=== PATIENT | female | born 1950 | race African-American/Black ===

== ENCOUNTER 2018-04-16 06:01 | Day surgery (SDC) | payer MEDICARE, MEDICAID ==
--- NOTE | 2018-04-13 15:09 | Pre-Procedure Note/Attestation ---
Pre-Procedure Note/Attestation Complete Prior to Procedure Planned Procedure: right Procedure Narrative: Cataract extraction With Intraocular Lens Implant Right Eye Indications for Procedure Pre-Operative Diagnosis: Nuclear Sclerotic Cataract Right Eye Attestation I attest that I discussed the nature of the procedure; its benefits; risks and complications; and alternatives (and the risks and benefits of such alternatives ), prior to the procedure, with the patient (or the patient's legal entry level marketing representative). I attest that, if there was a reasonable possibility of needing a blood transfusion, the patient (or the patient's legal entry level marketing representative) was given the [facility] standardized written summary, pursuant to the Bradley Katrina Blood Safety Act ([place] Health and Safety Code # 1645, as amended). I attest that I re-evaluated the patient just prior to the surgery and that there has been no change in the patient's H&P, except as documented below: Christian Trevino MD Apr 13, 2018 15:09
--- NOTE | 2018-04-13 15:16 | Opthalmology H&P ---
Ophthalmology H&P H&P Chief Complaint: decreased vision in right eye HPI Vision Affects Ability to: read, focus/use eyes together, manage personal affairs HPI Narrative Blurry Vison Exam Visual Acuity: OD COUNTING FINGERS OS 20/125 Tension: OD 15 OS 14 Eye Exam: normal OU: external exam, palpebral fissure-width, marginal reflex distance, levator function, corneas, anterior chambers; findings: lens - MATURE/ NS CATARACT RIGHT EYE, fundus exam - POOR VIEW RIGHT EYE Assessment/Plan Treatment Plan: cataract extraction w/ lens implant Goals of Treatment: improvement of vision, enhance quality of life Attestation Attestation The risks and benefits of the surgery as well as alternative procedures were explained to the patient in detail. Christian Trevino MD Apr 13, 2018 15:16
[2018-04-16] VITALS (9 sets, daily range): BP systolic 126–177; BP diastolic 63–97
[~2018-04-16] VITALS: Ht 154.9 cm; Wt 53.5 kg
[2018-04-16] MEDS ORDERED: Tetracaine 0.5% Opth 4ml Soln RIGHT EYE ONE (07:00)
[2018-04-16] MEDS ORDERED: Maxitrol Opth Oint 3.5gm ONE (07:00)
[2018-04-16] MEDS ORDERED: Pred Forte 1% Opth Susp 1ml ONE (07:00)
[2018-04-16] MEDS ORDERED: Pilocarpine 1% Opth 15ml Soln ONE (07:00)
[2018-04-16] MEDS ORDERED: Dexamethasone 4mg/ml vial ONE (07:00)
[2018-04-16] MEDS ORDERED: Akten 3.5% 1ml Btl RIGHT EYE ONE (07:00)
[2018-04-16] MEDS ORDERED: Proparacaine 0.5% Opth Soln 15ml RIGHT EYE ONE (07:00)
[2018-04-16] MEDS: Cyclopentolate 1% Opth Sol 2ml RIGHT EYE SCH ×3 (07:35→08:05)
[2018-04-16] MEDS: Phenylephrine 10% Opth Soln 5ml RIGHT EYE SCH ×3 (07:35→08:05)
[2018-04-16] MEDS ORDERED: BSS 500ml btl ONE (07:35)
[2018-04-16] MEDS ORDERED: Povidone-Iodine 5% opth solution ONE ×2 (07:35→09:20)
[2018-04-16] MEDS: Tropicamide 1% Opth 15ml Soln RIGHT EYE SCH ×3 (07:35→08:05)
[2018-04-16] MEDS ORDERED: EPINEPHrine 1mg/1ml Amp ONE (07:35)
[2018-04-16] MEDS ORDERED: BSS 15ml BTL ONE (07:35)
[2018-04-16] MEDS ORDERED: Sodium Hyaluronate 14 mg/ml 0.85ml ONE (07:35)
[2018-04-16] MEDS: Diclofenac Sod 0.1% Op Soln RIGHT EYE SCH ×3 (07:36→08:05)
[2018-04-16] MEDS: Tobramycin Op Soln 0.3% 5ml RIGHT EYE SCH ×3 (07:36→08:05)
[2018-04-16] MEDS ORDERED: LR 1000ml 1,000 ML IVLG SCH (07:58)
--- NOTE | 2018-04-16 07:58 | Anethesia Preoperative Eval ---
Anesthesia Pre-op PMH/ROS General Date of Evaluation: Apr 16, 2018 Time of Evaluation: 07:54 Anesthesiologist: Raphael ASA Score: ASA 2 Mallampati Score Class I : Soft palate, uvula, fauces, pillars visible Class II: Soft palate, uvula, fauces visible Class III: Soft palate, base of uvula visible Class IV: Only hard plate visible Mallampati Classification: Class II Surgeon: Belinda Diagnosis: R eye cataract Surgical Procedure: R eye cataract extraction Anesthesia History: none Family History: no anesthesia problems Allergies: Coded Allergies: No Known Allergies (Unverified , 04/13/18) Patient NPO?: Yes Past Medical History Cardiovascular: Reports: HTN; Denies: CAD, [place], valve dz, arrhythmia, other Pulmonary: Denies: asthma, COPD, GENESIS, other Gastrointestinal/Genitourinary: Reports: GERD; Denies: CRI, ESRD, other Neurologic/Psychiatric: Reports: depression/anxiety; Denies: dementia, CVA, TIA, other Endocrine: Reports: DM; Denies: hypothyroidism, steroids, other HEENT: Reports: cataract (L), cataract (R) Hematology/Immune: Reports: anemia - mild; Denies: DVT, bleeding disorder, other Musculoskeletal/Integumentary: Reports: DJD; Denies: OA, RA, DDD, edema, other PMH Narrative: as above PSxH Narrative: See chart Anesthesia Pre-op Phys. Exam Physician Exam Last Vital Signs Date Time Temp Pulse Resp B/P (MAP) Pulse Ox O2 Delivery O2 Flow Rate FiO2 04/16/18 07:29 98.0 92 16 177/97 100 Room Air Constitutional: NAD Neurologic: CN 2-12 intact Cardiovascular: RRR, no M/R/G Respiratory: CTA Gastrointestinal: S/NT/ND Airway Exam Mallampati Score: Class II MO: limited ROM: full Teeth: missing Dentures: no upper, no lower Anesthesia Pre-op A/P Labs see chart Studies Pre-op Studies: EKG - SR Risk Assessment & Plan Assessment: ASa 2 Plan: MAC Status Change Before Surgery: No Pre-Antibiotics Drug: none Suraj Lim MD Apr 16, 2018 07:58
[2018-04-16] MEDS ORDERED: fentaNYL 100 mcg/2 mL IV PRN (08:00)
[2018-04-16] MEDS ORDERED: DiphenhydrAMINE 50mg/ml Inj IVP PRN (08:00)
[2018-04-16] MEDS ORDERED: ACETAMINOPHEN-1 EAC1 ORAL (08:11)
[2018-04-16] MEDS ORDERED: SOMA350 MG PO (08:11)
[2018-04-16] MEDS ORDERED: NOVOLIN 70100 UNIT/1 SUBQ (08:11)
[2018-04-16] MEDS ORDERED: PHENYTOIN SODI100 MG ORAL (08:11)
[2018-04-16] MEDS ORDERED: BUSPIRONE HCL30 MG ORAL (08:11)
[2018-04-16] MEDS ORDERED: GABAPENTIN300 MG ORAL (08:11)
[2018-04-16] MEDS ORDERED: PROCHLORPERAZINE5 MG ORAL (08:11)
[2018-04-16] MEDS ORDERED: NS Irrig 1000ml ONE (08:30)
[2018-04-16] MEDS ORDERED: LR 1000ml ONE (08:30)
[2018-04-16] MEDS ORDERED: Midazolam 2mg/2ml Inj ONE (08:30)
[2018-04-16] MEDS ORDERED: fentaNYL 100 mcg/2 mL IV ONE (08:30)
[2018-04-16] MEDS ORDERED: Sterile Water Irrig 1000ml IRRIG ONE (08:30)
[2018-04-16] MEDS ORDERED: Propofol 200mg/20ml IV ONE (08:30)
--- NOTE | 2018-04-16 08:35 | NUR ---
NURSE NOTES: Left foot 22g IV initiated by Dr. Kaden Lim
--- NOTE | 2018-04-16 09:59 | Immediate Post-Op Evaluation ---
Immediate Post-Op Evalulation Immediate Post-Op Evalulation Procedure: R eye cataract extraction with IOL Date of Evaluation: Apr 16, 2018 Time of Evaluation: 09:58 IV Fluids: 400 Blood Products: none Estimated Blood Loss: none Urinary Output: none Blood Pressure Systolic: 134 Blood Pressure Diastolic: 72 Pulse Rate: 86 Respiratory Rate: 20 O2 Sat by Pulse Oximetry: 98 Temperature (Fahrenheit): 97.5 Pain Score (1-10): 1 Nausea: No Vomiting: No Complications none Patient Status: reacts, patent, none Hydration Status: adequate Suraj Lim MD Apr 16, 2018 09:59
--- NOTE | 2018-04-16 10:25 | 48 Hour Post Anesthesia Eval ---
Post Anesthesia Evaluation Procedure: R eye cataract extraction with IOL Date of Evaluation: Apr 16, 2018 Time of Evaluation: 10:24 Blood Pressure Systolic: 158 0: 76 Pulse Rate: 84 Respiratory Rate: 20 Temperature (Fahrenheit): 97.5 O2 Sat by Pulse Oximetry: 98 Airway: patent Nausea: No Vomiting: No Pain Intensity: 1 Hydration Status: adequate Cardiopulmonary Status: stable Mental Status/LOC: patient returned to baseline Follow-up Care/Observations: n/a Post-Anesthesia Complications: none Follow-up care needed: ready to discharge Suraj Lim MD Apr 16, 2018 10:25
[2018-04-16] MEDS ORDERED: acetaZOLAMIDE 500mg Sequel ORAL ONE (10:58)
--- NOTE | 2018-04-16 11:12 | NUR ---
NURSE NOTES: One 500mg capsule of Diamox administered PO LOT: [id number]
[2018-04-16] MEDS ORDERED: acetaZOLAMIDE 125mg tab ORAL SCH (11:15)
--- NOTE | 2018-04-18 10:03 | Brief Operative Note ---
Immediate Post Operative Note Operative Note Chief Complaint: blurry vison OD Pre-op Diagnosis: Dense Cataract Right Eye Procedure: Phaco with IOL, OD Post-op Diagnosis: Pseudophakia Post-op Diagnosis: same as pre-op Findings: consistent w/pre-op dx studies Surgeon: Belinda Anesthesiologist: Raphael Anesthesia: MAC Specimen: none Complications: none Condition: stable Fluids: LR Estimated Blood Loss: none Drains: none Implant(s) used?: Yes Christian Trevino MD Apr 18, 2018 10:03
--- NOTE | 2018-04-18 10:09 | Operative Note - PDOC ---
Operative Note Operative Note Date of Operation/Procedure: Apr 16, 2018 Chief Complaint: blurry vison OD Pre-op Diagnosis: Dense Cataract Right Eye Procedure: Phaco with IOL, OD Post-op Diagnosis: Pseudophakia Post-op Diagnosis: same as pre-op Operative Findings: consistent w/pre-op dx studies Surgeon: Belinda Anesthesiologist: Raphael Anesthesia: MAC Specimen: none Complications: none Condition: stable Fluids: LR Estimated Blood Loss: none Drains: none Implant(s) used?: Yes Indications for Procedure Dense(mature) cataract OD Description of Procedure This patient has been complaining visually significant cataract in the affected eye with the best corrected visual acuity under moderate glare conditions worse. The patient complains of difficulties with glare in performing activities of daily living and wants to manage personal affairs with comfort and accuracy and see well enough to move with safety at home and outdoors. The risks, benefits and alternatives of the procedure were discussed with the patient in the office prior to scheduling surgery. All questions from the patient were answered after the surgical procedure was explained in detail. The risks of the procedure as explained to the patient include, but are not limited to, pain, infection, bleeding, loss of vision, retinal detachment, need for further surgery, loss of lens nucleus, double vision, etc. Alternative procedures were discussed which include, to do nothing or seek a second opinion. Informed consent for this procedure was obtained from the patient. The patient was referred to a primary care physician for a cardiopulmonary clearance prior to surgery, after proper evaluation was done patient was properly scheduled for outpatient surgery. The patient was brought to the operating room where the anesthesiologist established I.V. lines and cardiac monitoring leads. Mild intravenous sedation was administered. The patient was then prepared with a 5% solution of povidone -iodine to the conjunctival fornix and lashes, and a 5% solution of povidone- iodine to the lids and periorbital skin. The patient was then draped in the usual sterile fashion. A lid speculum was then placed in the operative eye. A keratome blade was then used to create a biplanar incision into the anterior chamber. Viscoelastics was then instilled into the anterior chamber. A 3-mm single pass clear corneal incision was made just anterior to the vascular arcade of the temporal limbus using a keratome. Anterior capsulorrhexis was created on a mature lens . The dense nucleus was gently hydrodissected and hydrodelineated, and was freely movable in the capsular bag. The dense nucleus was then phacoemulsified. Following the deep groove formation, the lens was split bimanually and epicortex removed under high vacuum burst-mode phacoemulsification. Peripheral cortex was gently removed with the irrigation and aspiration handpiece. Minimal residual cortical material was still visible on the surgical plane. The capsular bag was expanded with viscoelastic. The intraocular lens was then inspected for right power and size and thought to be satisfactory. The implant was inspected under the microscope and found to be free of defects. The implant was inserted into the cartridge system under viscoelastic and placed in the capsular bag. The trailing haptic was positioned with the cartridge system. Viscoelastics was removed from the anterior chamber using the irrigation and aspiration unit. The corneal wound was then tested for leaks and none were found. The lid speculum were then removed. Sponge and needle counts were correct. An eye patch and shield were placed over the operative eye. The patient was taken to the recovery room in stable condition. Due to minimal residual cortical material on surgical plane, the patient will be referred to another facility for further evaluation and mangement. The patient tolerated the procedure well. The patient was then transferred to the ambulatory surgery unit in stable and satisfactory condition, was given detailed written instructions. Christian Trevino MD Apr 18, 2018 10:09
== END 2018-04-16 11:45 | disposition home or self-care (01) ==
LOC: SUR 06:01
DX: H25.11 Age-related nuclear cataract, right eye (principal); I10 Essential (primary) hypertension; J44.9 Chronic obstructive pulmonary disease, unspecified; K21.9 Gastro-esophageal reflux disease without esophagitis; E11.40 Type 2 diabetes mellitus with diabetic neuropathy, unspecified; F32.9 Major depressive disorder, single episode, unspecified; F41.9 Anxiety disorder, unspecified; D64.9 Anemia, unspecified; M19.90 Unspecified osteoarthritis, unspecified site
CPT/HCPCS: 66984; 82962; J0171; J1100; J2250; J2704; J3010; J3370; V2632; 94003; 94150

== ENCOUNTER 2018-04-18 05:27 | Day surgery (SDC) | payer MEDICARE, MEDICAID ==
[~2018-04-18] VITALS: Ht 154.9 cm; Wt 51.3 kg
[2018-04-18] VITALS (10 sets, daily range): BP systolic 125–150; BP diastolic 56–81
[~2018-04-18 05:27] MED LIST: ACETAMINOPHEN-1 EAC1 ORAL; BUSPIRONE HCL30 MG ORAL; GABAPENTIN300 MG ORAL; NOVOLIN 70100 UNIT/1 SUBQ; PHENYTOIN SODI100 MG ORAL; PROCHLORPERAZINE5 MG ORAL; SOMA350 MG PO
[2018-04-18] MEDS ORDERED: Pred Forte 1% Opth Susp 1ml RIGHT EYE SCH (06:00)
[2018-04-18] MEDS: Cyclopentolate 1% Opth Sol 2ml RIGHT EYE SCH ×3 (06:19→06:39)
[2018-04-18] MEDS: Phenylephrine 2.5% Op 2ml Soln RIGHT EYE SCH ×3 (06:19→06:39)
[2018-04-18] MEDS: Flurbiprofen 0.03% Opth Sol 2.5ml RIGHT EYE SCH ×3 (06:19→06:39)
[2018-04-18] MEDS: Vigamox Opth Soln 3ml RIGHT EYE SCH ×3 (06:20→06:39)
[2018-04-18] MEDS ORDERED: fentaNYL 100 mcg/2 mL IV ONE (06:56)
[2018-04-18] MEDS ORDERED: Midazolam 2mg/2ml Inj ONE (06:56)
[2018-04-18] MEDS ORDERED: EPINEPHrine 1mg/1ml Amp ONE (07:01)
[2018-04-18] MEDS ORDERED: Kenalog-40 1ml Vial ONE (07:02)
[2018-04-18] MEDS ORDERED: BSS 500ml btl ONE (07:02)
[2018-04-18] MEDS ORDERED: Kenalog-10 5ml Inj ONE (07:02)
[2018-04-18] MEDS ORDERED: Pred Forte 1% Opth Susp 1ml ONE (07:02)
[2018-04-18] MEDS ORDERED: Lidocaine 2% MPF 5ml Vial INJ ONE (07:02)
[2018-04-18] MEDS ORDERED: Dexamethasone 4mg/ml vial ONE (07:02)
[2018-04-18] MEDS ORDERED: Maxitrol Opth Oint 3.5gm ONE (07:02)
[2018-04-18] MEDS ORDERED: Tetracaine 0.5% Opth 4ml Soln ONE (07:03)
[2018-04-18] MEDS ORDERED: Bupivacaine 0.75% 30ml vial INJ ONE (07:03)
[2018-04-18] MEDS ORDERED: Sodium Hyaluronate 10 mg/ml 0.85ml ONE ×2 (07:03→09:35)
[2018-04-18] MEDS ORDERED: BSS 15ml BTL ONE (07:03)
[2018-04-18] MEDS ORDERED: Povidone-Iodine 5% opth solution ONE (07:03)
[2018-04-18] MEDS ORDERED: Propofol 200mg/20ml IV ONE (07:11)
--- NOTE | 2018-04-18 07:49 | Pre-Procedure Note/Attestation ---
Pre-Procedure Note/Attestation Complete Prior to Procedure Planned Procedure: right Procedure Narrative: PPV, fragmentation of retained lens material, removal of dislocated IOL, placement of secondary IOL Right eye Indications for Procedure Pre-Operative Diagnosis: Retained lens material plus dislocated IOL OD Attestation I attest that I discussed the nature of the procedure; its benefits; risks and complications; and alternatives (and the risks and benefits of such alternatives ), prior to the procedure, with the patient (or the patient's legal marketing development representative). I attest that, if there was a reasonable possibility of needing a blood transfusion, the patient (or the patient's legal marketing development representative) was given the [place] [facility] standardized written summary, pursuant to the Bradley Katrina Blood Safety Act ([place] Health and Safety Code # 1645, as amended). I attest that I re-evaluated the patient just prior to the surgery and that there has been no change in the patient's H&P, except as documented below: Jayce Olivares MD Apr 18, 2018 07:49
[2018-04-18] MEDS ORDERED: LR 1000ml 1,000 ML IVLG SCH (08:16)
--- NOTE | 2018-04-18 08:16 | Anethesia Preoperative Eval ---
Anesthesia Pre-op PMH/ROS General Date of Evaluation: Apr 18, 2018 Time of Evaluation: 07:12 Anesthesiologist: Raphael ASA Score: ASA 3 Mallampati Score Class I : Soft palate, uvula, fauces, pillars visible Class II: Soft palate, uvula, fauces visible Class III: Soft palate, base of uvula visible Class IV: Only hard plate visible Mallampati Classification: Class II Surgeon: Marshall Diagnosis: R eye retained lens material Surgical Procedure: R eye PPV, removal of lens fragments Anesthesia History: none Social History: drug use - h/o metamphetamine, opioids? Family History: no anesthesia problems Allergies: Coded Allergies: No Known Allergies (Unverified , 04/13/18) Medications: see eMAR Patient NPO?: Yes Past Medical History Cardiovascular: Reports: HTN, arrhythmia - sinus arrhytmia Pulmonary: Denies: asthma, COPD, GENESIS, other Gastrointestinal/Genitourinary: Reports: GERD; Denies: CRI, ESRD, other Neurologic/Psychiatric: Reports: depression/anxiety; Denies: dementia, CVA, TIA, other Endocrine: Reports: DM - on insulin; Denies: hypothyroidism, steroids, other HEENT: Reports: cataract (L), cataract (R); Denies: glaucoma, SITKA (L), SITKA (R), other Hematology/Immune: Denies: anemia, DVT, bleeding disorder, other Musculoskeletal/Integumentary: Reports: DJD; Denies: OA, RA, DDD, edema, other PMH Narrative: as above PSxH Narrative: see chart Anesthesia Pre-op Phys. Exam Physician Exam Last Vital Signs Date Time Temp Pulse Resp B/P (MAP) Pulse Ox O2 Delivery O2 Flow Rate FiO2 04/18/18 06:23 Room Air 04/18/18 06:22 97.8 77 20 146/81 100 Constitutional: NAD Neurologic: CN 2-12 intact Cardiovascular: RRR, no M/R/G Respiratory: CTA Gastrointestinal: S/NT/ND Airway Exam Mallampati Score: Class I MO: limited Neck: stiff ROM: limited Teeth: missing Dentures: no upper, no lower Anesthesia Pre-op A/P Labs see chart Risk Assessment & Plan Assessment: ASA 3 Plan: GA with LMA I/V line placement Status Change Before Surgery: No Pre-Antibiotics Drug: none Suraj Lim MD Apr 18, 2018 08:16
[2018-04-18] MEDS ORDERED: fentaNYL 100 mcg/2 mL IV PRN (08:30)
[2018-04-18] MEDS ORDERED: DiphenhydrAMINE 50mg/ml Inj IVP PRN (08:30)
--- NOTE | 2018-04-18 10:49 | Brief Operative Note ---
Immediate Post Operative Note Operative Note Chief Complaint: Pain, cloudy vision Right eye Pre-op Diagnosis: Retained lens material plus dislocated IOL OD Procedure: PPV, fragmentation of retained lens material, reinforcement of cataract wound, removal of dislocated IOL, suture in PC IOL OD Post-op Diagnosis: Same as pre op Post-op Diagnosis: same as pre-op Surgeon: rodolfo Anesthesiologist: chiqui Anesthesia: general Specimen: none Complications: yes Condition: stable Fluids: Per anesthesia Estimated Blood Loss: none Drains: none Implant(s) used?: Yes - 21.5 D [id number] Jayce Olivares MD Apr 18, 2018 10:49
--- NOTE | 2018-04-18 10:55 | Immediate Post-Op Evaluation ---
Immediate Post-Op Evalulation Immediate Post-Op Evalulation Procedure: R eye PPV, removal of retained lens material Date of Evaluation: Apr 18, 2018 Time of Evaluation: 10:52 IV Fluids: 800 Blood Products: none Estimated Blood Loss: min Urinary Output: none Blood Pressure Systolic: 120 Blood Pressure Diastolic: 56 Pulse Rate: 84 Respiratory Rate: 20 O2 Sat by Pulse Oximetry: 99 Temperature (Fahrenheit): 97.6 Pain Score (1-10): 1 Nausea: No Vomiting: No Complications none Patient Status: reacts, patent, none Hydration Status: adequate Suraj Lim MD Apr 18, 2018 10:55
[2018-04-18] MEDS ORDERED: LR 1000ml ONE (11:00)
[2018-04-18] MEDS ORDERED: Norco 5mg/325mg tab ORAL PRN (11:00)
--- NOTE | 2018-04-18 12:20 | 48 Hour Post Anesthesia Eval ---
Post Anesthesia Evaluation Procedure: R eye PPV, removal of retained lens material Date of Evaluation: Apr 18, 2018 Time of Evaluation: 12:19 Blood Pressure Systolic: 142 0: 56 Pulse Rate: 72 Respiratory Rate: 22 Temperature (Fahrenheit): 97.6 O2 Sat by Pulse Oximetry: 98 Airway: patent Nausea: No Vomiting: No Pain Intensity: 2 Hydration Status: adequate Cardiopulmonary Status: stable Mental Status/LOC: patient returned to baseline Follow-up Care/Observations: n/a Post-Anesthesia Complications: none Follow-up care needed: ready to discharge Suraj Lim MD Apr 18, 2018 12:20
--- NOTE | 2018-04-18 15:30 | Pre-op HX & Phy Repo 2 SIG ---
DATE OF ADMISSION: 04/16/2018 DATE OF SURGERY: 04/17/2018 PREOPERATIVE DIAGNOSIS: Retained lens material with partially dislocated intraocular lens, right eye. BRIEF NOTE: This is the second [facility] admission for the patient who is a 67-year-old lady with a history of cataract surgery in the right eye done yesterday, which was complicated by retained lens material and now partially dislocated lens. She is admitted for repair. PAST MEDICAL HISTORY: Remarkable for diabetes and hypertension. SOCIAL HISTORY: Negative for tobacco or alcohol use. ALLERGIES: She has no known allergies. MEDICATIONS: She is on oral medications for her diabetic disease. PHYSICAL EXAMINATION: Best vision at the time of admission was a slow 20/100 in the right eye and 20/70 in the left. The pressures were 17 and 16. The anterior segment on the right showed retained lens material at the pupillary axis. There was 1+ flare in the anterior chamber. The intraocular lens was dislocated inferiorly and nasally. No visible haptics were seen. The left anterior segment showed a nuclear cataract. Funduscopic examination of the right eye showed retained lens material posteriorly, which appeared to be outer nucleus. The retina appeared attached. A rare dot and blot hemorrhage was seen. The left fundus showed only a rare dot hemorrhages consistent with early nonproliferative diabetic retinopathy. General physical examination was done by the patient's reel hooker, Dr. Lackey and will be updated. ASSESSMENT: Retained lens material, right eye with dislocated intraocular lens. The plan is to do a pars plana vitrectomy with removal of the retained lens material. If possible, the dislocated lens will be salvaged, but it could not be securely sewn in. It will be removed and replaced with a suture in posterior chamber lens or an anterior chamber lens. The risks and benefits of surgery were gone over with the patient and family including potential infection, hemorrhage, inability to place a lens at this procedure with the need for subsequent placement later. Retinal detachment, remote possibility of loss of the eye. The risk of anesthesia was discussed. It is planned to do this procedure under general anesthesia. The patient and family understands and consents to the surgery, which will be performed tomorrow. Jayce Olivares M.D. DR: NABILA JOB#: [id number] CC:
--- NOTE | 2018-04-18 18:00 | Operative Note - Dictated ---
DATE OF OPERATION: 04/18/2018 PREOPERATIVE DIAGNOSIS: Retained lens material with dislocated intraocular lens, right eye. POSTOPERATIVE DIAGNOSIS: Retained lens material with dislocated intraocular lens, right eye. PROCEDURES: 1. Pars plana vitrectomy. 2. Fragmentation and removal of retained lens material. 3. Reinforcement of cataract wound. 4. Insertion of sutured-in posterior chamber lens. 5. Kenalog injection, right eye. SURGEON: Jayce Bennett M.D. SENIOR RELIABILITY ENGINEER: None. ANESTHESIA: LMA general. ANESTHESIOLOGIST: Suraj Lim M.D. JUSTIFICATION FOR SURGERY: This 67-year-old lady underwent cataract surgery 48 hours ago, complicated by ruptured capsule, retained lens material, and subsequent partial dislocation of the posterior chamber lens. BRIEF NOTE: The patient was brought to the operating room, placed on OR table in supine position. After time-out was agreed upon and performed by the staff, general LMA anesthesia was induced by Dr. Lim. Retrobulbar and Van Lint blocks were then given to the right eye to limit intraoperative anesthetic and postoperative pain. She was then prepped and draped in normal manner. A lid speculum was inserted into the right eye. The cataract wound through clear cornea temporally was explored and found to be not sufficiently tight to support vitrectomy. 10-0 nylon sutures were then placed across the wound totaling 3. The knots were then rotated posteriorly. The infusion cannula was inserted inferotemporally using a 23-gauge trocar system, 4 mm to limbus. Two additional cannulas were placed superiorly. Vitrectomy was begun posterior to the lens implant with the aid of Kenalog to visualize vitreous. Lens debris was gently removed with the vitrector going 360 degrees peripherally. A large portion of nucleus was noted overlying the optic nerve and two smaller fragments of cortex inferiorly. All cortical material were removed from the nuclear fragment and the fragments down at 6 o'clock were gently suctioned and removed after vitreous was cleaned. The lens implant was noted to be a one-piece lens that was dislocated posteriorly and inferiorly and did not appear to have adequate capsular support. It was moved into the sulcus temporarily and vitreous was removed surrounding it. A portion of the lens debris was noted in the anterior chamber and it was decided that this will be removed once the anterior chamber was opened. With the vitreous now cleaned except for the large lens fragment, a 20-gauge MVR blade was used to enlarge the superotemporal sclerotomy. Using the fragmatome under gentle fragmentation power of 20. The nucleus was engaged and gently fragmented. All lens debris was then removed and the vitreous was cleared of Kenalog. Scleral depression showed no peripheral breaks or tears. At this juncture, the superotemporal sclerotomy was tightened with 8-0 Vicryl suture. Preparation was then made to remove the lens implant and insert a posterior chamber lens. A 10-0 Prolene sutures, 2 in total were passed from the 10 o'clock position to the 4 o'clock position, 2 mm from the limbus, roughly 3 mm apart. A straight needle was engaged into a bent 27-gauge needle at the 4 o'clock position and these were pulled through the globe posterior to the lens implant. Using a 69 Rhea blade, a groove was made superiorly at the surgical limbus and the eye was entered in a shelved incision using the keratome. The wound was enlarged on either side to allow for removal of the lens implant. Before the implant was removed, Healon was injected into the anterior chamber and the lens fragments were gently removed with forceps. The intra-ocular lens was then rotated into the anterior chamber using a membrane pick and pressure from the light pipe posteriorly. Once this was done in the anterior chamber, the wound was enlarged slightly with a keratome and the lens was removed from the eye. The pupil was noted to be nicely rounded. The pre-placed Prolene sutures were then pulled from the pupil outside of the eye at the 12 o'clock position and cut. A posterior chamber lens, model [id number], 21.5 diopters was chosen. The sutures were then passed through the islet on either side and then secured with the triple knot. The knot was rotated out of the eye on either side. With the wound being now enlarged, the implant was then engaged into the anterior chamber and into the posterior segment. Sutures on either end were pulled up to secure the lens in perfect position. The sutures were then tied and rotated into the eye. At this juncture, the cataract wound at the limbus was closed with 7 interrupted sutures of 10-0 nylon with the knots buried. Healon was evacuated from the eye with the pupil being nicely round. Conjunctiva and Tenon's capsule which had been opened from the 9 to 4 o'clock position was then secured with 6-0 plain catgut. Subconjunctival Decadron and gentamicin were then injected inferiorly and topical Maxitrol ointment, prednisolone drops, and atropine drops were instilled as well as topical Vigamox. The eye was then patched and shielded and the patient taken to recovery in excellent condition. There were no complications. Jayce Bennett M.D. DR: Lynda JOB#: [id number] CC: Christian Trevino M.D.; Fax#: [phone] JAYCE BENNETT M.D. ; FAX#: [phone]
== END 2018-04-18 12:20 | disposition home or self-care (01) ==
LOC: SUR 05:27
DX: H59.021 Cataract (lens) fragments in eye following cataract surgery, right eye (principal); T85.22XA Displacement of intraocular lens, initial encounter; Y83.8 Other surgical procedures as the cause of abnormal reaction of the patient, or of later complication, without mention of misadventure at the time of the procedure; Y92.89 Other specified places as the place of occurrence of the external cause; E11.9 Type 2 diabetes mellitus without complications; I10 Essential (primary) hypertension; E11.3299 Type 2 diabetes mellitus with mild nonproliferative diabetic retinopathy without macular edema, unspecified eye; E11.40 Type 2 diabetes mellitus with diabetic neuropathy, unspecified; Z79.4 Long term (current) use of insulin; J44.9 Chronic obstructive pulmonary disease, unspecified; K21.9 Gastro-esophageal reflux disease without esophagitis; F32.9 Major depressive disorder, single episode, unspecified; F41.9 Anxiety disorder, unspecified; M19.90 Unspecified osteoarthritis, unspecified site
CPT/HCPCS: 66986; 67036; 82962; J0171; J1100; J2250; J2704; J3010; J3301; J3470; J3490; V2632; 94003; 94150